=== PATIENT | female | born 1980 | race Caucasian/White ===

== ENCOUNTER 2023-12-07 10:14 | Emergency (ER) | payer OTHER, SELFPAY ==
[2023-12-07 10:49] VITALS: BP 99/75
[2023-12-07 12:02] VITALS: BP 119/72
[2023-12-07 12:07] VITALS: BMI 36.1
--- NOTE | 2023-12-07 12:32 | ED.SKININJ ---
HPI-Injury
General
Chief Complaint: Bite
Time Seen by Provider: 12/07/23 11:27
History of Present Illness-Injury
Initial Injury comments:
42-year-old female presenting after her dog jumped up and bit her in the lip suffering laceration. Reports that her dog is up-to-date with immunizations, and was not displaying any unusual behavior. Patient herself is up-to-date with her tetanus.
Denies any additional injuries. Denies fever or additional acute medical complaints
Phy Exam
Physical Exam
Physical Exam:
General: Well-appearing, no clinical signs of dehydration, nontoxic and in no acute distress
HEENT: protecting airway, 2 cm laceration to the left upper lip crossing the vermilion border, clean
Neck: appears supple
CV: Normal heart rate
Resp: No accessory muscle use, no increased work of breathing
Abd: Nondistended
Extremities: No deformities, no swelling
Neuro: alert, no focal neurologic deficit
: deferred
Rectal: deferred
Psych: Normal affect
Skin: Intact
Course
Orders/Labs/Results
Orders:
Orders
12/07/23 13:32
Doxycycline [Vibramycin] 100 mg PO NOW STA
Vital Signs
Initial and Last Documented VS:
Initial Vital Signs
Temp Pulse Resp BP Pulse Ox
98.2 F 49 17 99/75 100
12/07/23 10:49 12/07/23 10:49 12/07/23 10:49 12/07/23 10:49 12/07/23 10:49
Last Documented Vital Signs
Temp Pulse Resp BP Pulse Ox
98.1 F 41 15 121/82 100
12/07/23 14:10 12/07/23 14:10 12/07/23 14:10 12/07/23 14:10 12/07/23 14:10
Procedures
Laceration Closure
Left Upper Lip:
Status of Wound: clean
Size of Wound in cm: 2
Preparation: cleaned with saline
Anesthesia: 1% Lidocaine
Wound exploration: explored to base- no FB
Type of Closure: single layer closure
Skin Closure Material: 5-0 prolene
Number of sutures: 5
MDM/Problems Addressed
MDM/Problems Addressed:
42-year-old female presenting after her dog bit her lip laceration. Vital signs within normal limits.
On exam patient well-appearing, no acute distress or discomfort. Patient does have a clean appearing laceration. Her dog is up-to-date with immunizations, without indication for rabies vaccination. Patient herself is also up-to-date with tetanus.
Laceration repaired and irrigated. Please see procedure note. Otherwise feel stable for discharge. Patient with penicillin allergy, will start doxycycline. Return precautions discussed and patient verbalized understanding
*Critical Care Note
Total Time (30-74mins, 75-104mins- exclusive of procedures): Not Applicable
ED Attending Note
-
Portions of this chart may have been created with voice recognition software.� Occasional wrong word or��sound alike� substitutions may have occurred due to the inherent limitations of voice recognition software.
Discharge Plan
Departure
Patient Disposition: Home (Routine Discharge)
Date of Disposition: 12/07/23
Time of Disposition: 13:36
Patient with high blood pressure during this ER visit?: No
Condition: Good
Discharge Problem:
Laceration of lip, Dog bite
Instructions: Animal Bites (DC), Laceration Repair With Stitches (DC)
Prescriptions:
New
doxycycline hyclate 100 mg capsule
100 mg PO BID 7 Days Qty: 14 0RF
Referrals:
Orlin Callaway MD [Family Provider] -
Activity Restrictions/Additional Instructions:
You were seen in the emergency department for a laceration to your lip after your dog bit you.
Your laceration was repaired with 5 sutures, which will need to be removed in 5 to 7 days.
Please follow-up closely with your primary care physician.
Return to the emergency department for any worsening of your symptoms, any redness or swelling to the lip with abnormal fluid drainage, or any development of chest pain, difficulty breathing, abdominal pain with persistent vomiting and inability to
tolerate food or liquid by mouth (concern for dehydration), weakness, headache or confusion, fever greater than 100.4, or any additional symptoms that are concerning to you.
Thank you for choosing [facility].
Interventions
Interventions:
*Risk Screen - Suicide Last Done: 12/07/23 12:07
*General Assessment Last Done: 12/07/23 12:07
*Neglect/Abuse Screening Last Done: 12/07/23 12:07
ED- Fall Risk Assessment Last Done: 12/07/23 12:09
*ED COVID-19 Vaccine History Last Done: 12/07/23 12:07
*Nursing Disposition Last Done: 12/07/23 14:10
ED-Skin Assessment Last Done: 12/07/23 12:10
Discharge Date and Time
Discharge Date/Time: 12/07/23 14:11
Print Language: CROATIAN
[2023-12-07] MEDS: VIBRAMYCIN 100 MG PO (13:53)
[2023-12-07 14:10] VITALS: BP 121/82
== END 2023-12-07 14:11 | disposition home or self-care (01) ==
LOC: EMR 10:14
PROVIDERS: EMERGENCY PHYSICIAN Student in an Organized Health Care Education/Training Program; FAMILY PHYSICIAN Family Medicine
DX: S01.551A Open bite of lip, initial encounter (principal); W54.0XXA Bitten by dog, initial encounter; Z88.0 Allergy status to penicillin; Z91.048 Other nonmedicinal substance allergy status
CPT/HCPCS: 99283; 12011

== ENCOUNTER → 2023-12-28 07:38 | Outpatient (REF) | payer OTHER, SELFPAY | LOC: WDC 07:38 | PROVIDERS: ATTENDING PHYSICIAN Physician Assistant | DX: Z12.31 Encounter for screening mammogram for malignant neoplasm of breast (principal) | CPT/HCPCS: 77063; 77067 ==